=== PATIENT | female | born 1995 | race Caucasian/White ===

== ENCOUNTER 2025-01-03 09:38 | Emergency (ER) | payer MEDICAID ==
[~2025-01-03] VITALS: Ht 170.2 cm; Wt 68.0 kg
[2025-01-03 09:45] VITALS: O2SAT 99
[2025-01-03 11:06] LABS: CHLORIDE 108 mEq/L (98-107); POTASSIUM 3.7 mEq/L (3.5-5.1); SODIUM 140 mEq/L (136-145)
[2025-01-03 11:07] LABS: BASOPHILS % 0.4 % (0.0-2.0); CARBON DIOXIDE 25 mEq/L (21-32); EOSINOPHILS % 1.3 % (0.0-5.0); HEMATOCRIT. 39.8 % (36.0-48.0); HEMOGLOBIN. 13.1 g/dL (12.0-16.0); LYMPHOCYTES % 32.4 % (20.0-50.0); MEAN CORPUSCULAR HEMOGLOBIN 29.5 pg (28.0-32.0); MEAN CORPUSCULAR VOLUME 89.4 fL (81.0-99.0); MEAN PLATELET VOLUME 8.6 fl (7.4-10.4); MONOCYTES % 5.9 % (2.0-8.0); PLATELET 267 x1000/uL (130-400); RED BLOOD CELL COUNT 4.45 mill/uL (4.2-5.4); WHITE BLOOD COUNT 5.1 x1000/uL (4.5-11.0)
[2025-01-03 11:08] LABS: CALCIUM 9.4 mg/dL (8.7-10.4)
[2025-01-03 11:12] LABS: CREATININE 0.7 mg/dL (0.6-1.0); GLUCOSE 93 mg/dL (70-105)
[2025-01-03 11:13] LABS: UREA NITROGEN BLOOD 9 mg/dL (9-23)
[2025-01-03 11:15] LABS: TROPONIN I HIGH SENSITIVITY < 4 ng/L (3.0-34)
[2025-01-03] MEDS: ACETAMINOPHEN 1000MG/100ML 100 ML IV ONE (12:43)
[2025-01-03 16:55] VITALS: BP 135/86; PULSE 94; RESP 18; TEMP 36.8; O2SAT 99
== END 2025-01-03 11:58 | disposition left against medical advice (07) ==
LOC: ER 10:19 → 5WST 11:58 → ER 11:58 → UNDOADMIN 11:58 → EDBEDREQ 12:05 → EDBEDREQTM 12:05 → UNDODISIN 19:25
DX: R56.9 Unspecified convulsions (principal); G80.9 Cerebral palsy, unspecified; Z53.29 Procedure and treatment not carried out because of patient's decision for other reasons; Z88.6 Allergy status to analgesic agent
CPT/HCPCS: 80048; 82962; 83880; 85025; 84484; 36415; 71045; 70450; 93005; 96365; 99285; Z7610; J0131